=== PATIENT | male | born 1990 | race Caucasian/White ===

== ENCOUNTER 2022-11-12 12:05 | Outpatient (CLI) | payer BC, SELFPAY ==
[2022-11-12 17:10] LABS: Chlamydia DNA Amplified* NOT DETECTED (No Detected); GC DNA Amplified* NOT DETECTED (No Detected)
== END 2022-11-12 12:06 | disposition home or self-care (01) ==
LOC: NFLDUCREF 12:57
PROVIDERS: Visit Provider Nurse Practitioner Family
DX: N50.819 Testicular pain, unspecified (principal)
CPT/HCPCS: 87491; 87591

== ENCOUNTER 2022-11-15 15:36 | Outpatient (CLI) | payer BC, SELFPAY ==
--- NOTE | 2022-11-15 16:00 | CRLHL7_ITS ---
For Patients: As a result of the Century Cures Act, medical imaging exams and procedure reports are released immediately into your electronic medical record. You may view this report before your referring provider. If you have questions, please contact your health care provider. Indication: Right scrotal swelling. Technique: Ultrasound of the scrotum and contents. Sonographic steel-scale images were obtained with spectral and color Doppler waveform and spectral waveform analysis of the testicles. Comparison: None. Findings: Bother testicles are normal in size and echotexture. No suspicious masses. Left testicle contains calcifications. Arterial and venous color Doppler blood flow and spectral waveforms are present in both testicles. Epididymis: Unremarkable bilaterally. Normal blood flow. Other: Small bilateral hydroceles. Left-sided varicocele present. Scrotal wall is normal. Impression: 1. No sign of torsion or acute inflammation. 2. Small bilateral hydroceles. 3. Left-sided varicocele. Dictated by Akira Yeung MD @ 11/15/2022 5:40:15 PM (Electronically Signed)
== END 2022-11-15 15:37 | disposition home or self-care (01) ==
LOC: US 15:37
PROVIDERS: Visit Provider Nurse Practitioner Family
DX: N50.819 Testicular pain, unspecified (principal); N43.2 Other hydrocele; I86.1 Scrotal varices
CPT/HCPCS: 76870; 93976